=== PATIENT | female | born 1995 ===

== ENCOUNTER 2024-03-28 12:44 | Observation (INO) | payer MEDICAID ==
[2024-03-28] MEDS ORDERED: Acetaminophen 325 MG Tab PO PRN (14:04)
[2024-03-28] MEDS ORDERED: Sodium Chloride 0.9% 2.5 ML Syringe FLUSH PRN (14:04)
[2024-03-28] MEDS ORDERED: Water For Irrigation,Sterile 1,000 ML Container IRR PRN (14:04)
[2024-03-28] MEDS ORDERED: Carboprost Tromethamine 250 MCG/1 mL Vial IM PRN (14:04)
[2024-03-28] MEDS ORDERED: Sodium Chloride 0.9% 10 ML Syringe FLUSH PRN (14:04)
[2024-03-28] MEDS ORDERED: Misoprostol 200 MCG Tab PO PRN (14:04)
[2024-03-28] MEDS ORDERED: Ondansetron 4 MG Tab.DIS PO PRN (14:04)
[2024-03-28] MEDS ORDERED: Sodium Chloride 0.9% 20 ML SDV IV PRN (14:04)
[2024-03-28] MEDS ORDERED: Aluminum Hydroxide/Magnesium Hydroxide/Simethicone Susp 30 ML Cup PO PRN (14:04)
[2024-03-28] MEDS ORDERED: Butorphanol 2 MG/ML SDV IVPUSH PRN (14:04)
[2024-03-28] MEDS ORDERED: Lidocaine 1% 50 ML MDV INJECT PRN (14:04)
[2024-03-28] MEDS ORDERED: Methylergonovine 0.2 MG/1 ML Amp IM PRN (14:04)
[2024-03-28] MEDS ORDERED: Famotidine 20 MG Tab PO PRN (14:04)
[2024-03-28] MEDS ORDERED: Oxytocin/0.9 % Sodium Chloride 30 UNIT/500 ML BAG IV SCH (14:15)
[2024-03-28 15:11] LABS: HEMATOCRIT 40.4 % (37.0-47.0); HEMOGLOBIN 14.8 g/dL (12.0-16.0); MEAN CORPUSCULAR HEMOGLOBIN 31.8 pg (28.0-32.0); MEAN CORPUSCULAR HGB CONC 36.6 g/dL (32.0-36.0); MEAN CORPUSCULAR VOLUME 86.7 fL (83.0-99.0); MEAN PLATELET VOLUME 11.2 fL (9.4-12.3); PLATELET COUNT,PLT 117 K/uL (150-400); RED BLOOD CELL COUNT 4.66 M/uL (4.10-5.30); WHITE BLOOD CELL COUNT,WBC 9.18 K/uL (3.9-11.3)
[2024-03-28] MEDS: Ampicillin 2 GM in Sodium Chloride 0.9% 100 ML IV ONE (15:34)
[2024-03-28] MEDS: Lactated Ringers 1,000 ML IV SCH (15:35)
[2024-03-28] MEDS: Ampicillin 1 GM in Sodium Chloride 0.9% 50 ML IV SCH (19:35)
== END 2024-03-29 07:10 | disposition home or self-care (01) ==
LOC: MW.OB 12:44 → MW.OBCHECK 12:44 → MW.OB 14:05
PROVIDERS: ADMIT Obstetrics & Gynecology; ATTEND Obstetrics & Gynecology
DX: O35.BXX0 Maternal care for other (suspected) fetal abnormality and damage, fetal cardiac anomalies, not applicable or unspecified (principal); O99.113 Other diseases of the blood and blood-forming organs and certain disorders involving the immune mechanism complicating pregnancy, third trimester; O99.820 Streptococcus B carrier state complicating pregnancy; Z3A.37 37 weeks gestation of pregnancy
CPT/HCPCS: 36415; 59025; 85027; 86592; 86850; 86900; 86901; J0290; J3490; J7120; 99221; 99238